=== PATIENT | female | born 1945 | race Caucasian/White ===

== ENCOUNTER → 2017-02-08 | Outpatient (CLI) | payer OTHER ==
[~2017-02-08] MED LIST: ASPEC325 PO; CHOL100010 PO; TRIATAB3 PO
[2017-02-08 14:19] LABS: ESTIMATED AVERAGE GLUCOSE 117 mg/dl; HA1C FLAG Normal (Normal)
[2017-02-08 14:46] LABS: CALCIUM 9.8 mg/dl (8.5-10.1)
[2017-02-08 14:49] LABS: ALT/SGPT 59 U/L (12-78); AST/SGOT 46 U/L (15-37); BLOOD UREA NITROGEN 10 mg/dl (7-18); BUN/CREATININE RATIO 15.4 (10-20); CARBON DIOXIDE 28 mmol/L (21-32); CHLORIDE 103 mmol/L (98-107); CHOLESTEROL 194 mg/dl (0-200); CREATININE 0.63 mg/dl (0.60-1.20); GLUCOSE 97 mg/dl (70-99); POTASSIUM 3.8 mmol/L (3.5-5.1); SODIUM 138 mmol/L (136-145); TRIGLYCERIDES 114 mg/dl (0-150); VERY LOW DENSITY LIPOPROT CALC 23 mg/dl
[2017-02-08 14:59] LABS: ALB/GLOB RATIO 1.2 (0.9-2); ALKALINE PHOSPHATASE 88 U/L (45-117); CHOLESTEROL/HDL RATIO 4.3; HDL CHOLESTEROL 45 mg/dl; LDL CHOLESTEROL CALCULATED 126 mg/dl
--- NOTE | 2017-02-15 08:03 | CODING QUERY MEDICAL NECESSITY ---
CQSUPPORTING DIAGNOSIS NEEDED A supporting diagnosis is required for the test/procedure performed on this patient in order for us to be reimbursed by the patient's insurance. Please provide a supporting diagnosis for the following test/procedure listed below next to the test name along with your signature. *If there is no additional diagnosis for this patient that would support the following test/procedure please document that below next to the test/procedure. Test(s)/Procedure(s) that require a supporting diagnosis: DOS 02/08/17 GLYCATED HEMOGLOBIN TEST Provider Signature: Date: Thank you Deedee Alejo Health Information Management Once completed, please kindly fax back to [phone] For questions please call [phone]
== END | disposition home or self-care (01) ==
LOC: C.LABBC 09:41
PROVIDERS: ATTEND Internal Medicine
DX: Z00.00 Encounter for general adult medical examination without abnormal findings (principal); E55.9 Vitamin D deficiency, unspecified; R73.03 Prediabetes

== ENCOUNTER → 2017-04-30 | Outpatient (CLI) | payer OTHER ==
--- NOTE | 2017-04-30 15:41 | DIAGNOSTIC IMAGING REPORT ---
ABD/PELVIS ORAL CONT ONLY CLINICAL HISTORY: Epigastric abdominal pain. Previous hernia repair. COMPARISON STUDY: CT of the abdomen and pelvis September 29, 2011. FINDINGS: Evaluation of the abdomen and pelvis is suboptimal on this unenhanced exam. There is suspected fatty infiltration of the liver. There is lobulated contour of the liver surface with enlargement of the lateral segment. This may reflect cirrhosis. There is no biliary ductal dilatation status post cholecystectomy. Unenhanced images of the spleen, adrenal glands and pancreas are unremarkable. There is no hydronephrosis. There are left-sided parapelvic cysts. There is been an interval ventral hernia repair. There is no evidence for a bowel obstruction. The appendix is normal. The uterus is surgically absent. There are no suspicious osseous lesions. There is no ascites or lymphadenopathy. IMPRESSION: 1. No acute process within the abdomen or pelvis on unenhanced exam. 2. Suspected fatty infiltration of the liver with lobulated contour of the liver surface which raises the possibility of early cirrhosis. Electronically signed by: Gael Rogel M.D. 04/30/2017 3:40 PM Dictated Date/Time: 04/30/2017 3:31 PM
== END | disposition home or self-care (01) ==
LOC: C.CTS 13:15
PROVIDERS: ATTEND Physician Assistant
DX: R10.13 Epigastric pain (principal)

== ENCOUNTER → 2017-05-05 | Outpatient (CLI) | payer OTHER ==
--- NOTE | 2017-05-05 10:29 | DIAGNOSTIC IMAGING REPORT ---
ULTRASOUND RIGHT UPPER QUADRANT ABDOMEN CLINICAL HISTORY: Hepatomegaly.. COMPARISON STUDY: Abdominal CT dated 04/30/2017. TECHNIQUE: Real-time, grayscale, and color flow sonography of the right upper quadrant of the abdomen was performed. Images are reviewed in the transverse and longitudinal planes. FINDINGS: Liver: The liver is normal in size measuring 13.3 cm in length. The liver demonstrates heterogeneously increased echotexture consistent with hepatic steatosis. Mild nodularity of the surface contour is suggested. There is no intrahepatic biliary ductal dilatation. The main portal vein is patent. Gallbladder: The gallbladder is surgically absent. The common bile duct measures up to 0.8 cm in diameter. Pancreas: Visualized portions of the pancreatic head and body are normal in appearance. The majority of the pancreas was not well visualized. The splenic vein is patent. Right kidney: Survey images of the right kidney demonstrate cortical atrophy. There is no hydronephrosis. Ascites: None. IMPRESSION: 1. The liver is normal in size and there is evidence of hepatic steatosis. 2. Mild nodularity of the hepatic surface contour suggests early change of cirrhosis. 3. The gallbladder is surgically absent. Electronically signed by: Rodolfo Renee M.D. 05/05/2017 10:28 AM Dictated Date/Time: 05/05/2017 10:26 AM
== END | disposition home or self-care (01) ==
LOC: C.ULTRBC 09:40
PROVIDERS: ATTEND Physician Assistant
DX: R16.0 Hepatomegaly, not elsewhere classified (principal)

== ENCOUNTER → 2017-11-16 | Outpatient (CLI) | payer OTHER ==
--- NOTE | 2017-11-16 09:46 | DIAGNOSTIC IMAGING REPORT ---
ABDOMINAL ULTRASOUND, RIGHT UPPER QUADRANT HISTORY: Enlarged liver. COMPARISON: CT of the abdomen and pelvis April 30, 2017 and right upper quadrant ultrasound May 05, 2017. FINDINGS: There is no biliary ductal dilatation status post cholecystectomy. This exam is compromised by suboptimal penetration. Increased hepatic echogenicity suggests fatty infiltration. No hepatic lesions are identified although sensitivity is diminished on this unenhanced exam. The size of the liver is within normal limits. The pancreas is obscured by overlying bowel gas. There is no right hydronephrosis. A 1.3 cm right renal cyst is noted. IMPRESSION: 1. Fatty infiltration of the liver. Normal size liver. 2. No biliary ductal dilatation status post cholecystectomy. 3. Study compromised by suboptimal penetration. Largely obscured pancreas. Electronically signed by: Gael Rogel M.D. 11/16/2017 9:45 AM Dictated Date/Time: 11/16/2017 9:43 AM
== END | disposition home or self-care (01) ==
LOC: C.ULTR 08:52
PROVIDERS: ATTEND Internal Medicine
DX: K76.0 Fatty (change of) liver, not elsewhere classified (principal)

== ENCOUNTER 2019-02-24 01:00 | Inpatient (IN) ==
[2019-02-24] MEDS ORDERED: SODIUM CHLORIDE 0.9% 1000ML 1,000 ML IV SCH (01:30)
[2019-02-24 01:35] LABS: Basophils # (auto) 0.01 K/uL (0-0.2); Basophils % (auto) 0.1 %; Eosinophils # (auto) 0.02 K/uL (0-0.5); Eosinophils % (auto) 0.2 %; Hematocrit (blood only) 42.3 % (37-47); Hemoglobin 14.3 g/dL (12.0-16.0); Immature Granulocytes # (auto) 0.01 K/uL (0.00-0.02); Immature Granulocytes % (auto) 0.1 %; Lymphocytes # (auto) 0.53 K/uL (1.2-3.4); Lymphocytes % (auto) 6.3 %; Mean Corpuscular Hgb Conc 33.8 g/dL (32-36); Mean Corpuscular Volume 83.6 fL (80-100); Mean Platelet Volume 10.3 fL (7.4-10.4); Monocytes # (auto) 0.29 K/uL (0.11-0.59); Monocytes % (auto) 3.5 %; Neutrophils # (auto) 7.54 K/uL (1.4-6.5); Neutrophils % (auto) 89.8 %; Platelet Count 176 K/uL (130-400); RDW Coefficient of Variation 13.2 % (11.5-14.5); RDW Standard Deviation 39.6 fL (36.4-46.3); Red Blood Count 5.06 M/uL (4.2-5.4)
[2019-02-24 01:50] LABS: Albumin Level 4.1 gm/dl (3.4-5.0); BUN Creatinine Ratio 17.5 (10-20); Calcium 9.8 mg/dl (8.5-10.1); Creatinine Clr Calc Pharmacy 76.4 ml/min; Est GFR (African American) 98.6; Est GFR (Non-African American) 85.1; Magnesium 2.1 mg/dl (1.8-2.4); Potassium 3.4 mmol/L (3.5-5.1)
[2019-02-24 02:05] LABS: Albumin Globulin Ratio 1.1 (0.9-2); Bilirubin,Total 0.7 mg/dl (0.2-1); Globulin 3.7 gm/dl (2.5-4.0); Total Protein 7.8 gm/dl (6.4-8.2); Troponin I 0.054 ng/ml (0-0.045)
[2019-02-24 02:11] LABS: Appearance Urine Turbid (Clear); Bacteria Urine Automated Negative (Negative); Bilirubin Urine Negative (Negative); Color Urine Yellow; Epithelial Cell Urine Auto >30 /lpf (0-5); Glucose Urine UA Negative (Negative); Leukocyte Esterase Urine 2+ (Negative); Nitrite Urine Negative (Negative); Specific Gravity Urine 1.025 (1.000-1.030); Urobilinogen Urine Negative (Negative); pH Urine 8.5 (4.5-7.5)
[2019-02-24] MEDS ORDERED: ONDANSETRON INJ 2 MG/ML 2 ML VIAL IV STA (02:13)
[2019-02-24 02:23] LABS: Protein Urine 1+ (Negative)
[2019-02-24 02:26] LABS: Ketones Urine 4+ (Negative)
[2019-02-24 02:28] LABS: Amorphous Sediment Urine Present (None Prsent)
[2019-02-24] MEDS ORDERED: IOVERSOL 100ml IV PRN (02:44)
[2019-02-24] MEDS ORDERED: fentaNYL citrate 100 MCG/2 ML VIAL IV PRN (03:00)
--- NOTE | 2019-02-24 03:11 | Emergency Department Note ---
Entered by Lalit Rebolledo acting as a scribe for History of Present Illness General Chief complaint: Nausea Stated complaint: NAUSEA/VOMITING Time Seen by Provider: 02/24/19 01:12 Source: patient and family () History of Present Illness Onset (ago): day(s) (yesterday at 2100) Location: abdomen Pain Consistency: + other (multiple episodes) Maximum Pain Intensity: 4 Quality: + other (vomiting and diarrhea) Associated symptoms: + other (Positive for right-sided abdominal pain, a subjective fever, chills, and feeling more tired than usual. Negative for bloody stool, hematemesis, and changes in her bowel movements.) The patient is a 73 year old female who presents to the emergency department with complaints of multiple episodes of vomiting and diarrhea beginning yesterday at 2100. The patient states that she has had three episodes of vomiting and three episodes of diarrhea today. She notes that she gets a sharp pain in her right side prior to having an episode of vomiting and diarrhea. She also complains of a subjective fever and chills. She reports that she felt fine earlier today. Per , the patient is more tired than she usually is. He states that the patient has been more tired since her knee surgery in September,. The patient states that she has been having signs of depression for the last month. She denies any bloody stool, hematemesis, and changes to her bowel movements. No other recent history of abnormal bowel movements or urination. No recent change in diet or medications. She notes that she has had a cholec ystectomy and had a complication which required an additional abdominal surgery. Patient did have a surgery to her right knee in September and has had some difficulty recovering since. No sick contact at home. Home Medications Home Medications Medication Instructions Recorded Confirmed Type No Known Home Medications 02/24/19 02/24/19 History Allergies Allergy/AdvReac Type Severity Reaction Status Date / Time fluoxetine Allergy Intermediate RASH Verified 02/24/19 03:24 doxycycline AdvReac Severe UPSET Verified 02/24/19 03:24 STOMACH Past Med/Surg History Medical History Vitamin D deficiency (Acute) Speech dysfluency (Acute) Pre-diabetes (Acute) Peripheral vertigo (Acute) Osteoarthritis of knee (Acute) Obstructive sleep apnea (Acute) Hepatic steatosis (Acute) Hepatic cirrhosis (Acute) Generalized anxiety disorder (Acute) Cognitive changes (Acute) Attention or concentration deficit (Acute) Bipolar disorder Cardiac murmur CHILDHOOD; NO MURMUR NOTED ON PAT EXAM GERD (gastroesophageal reflux disease) CONTROLLED Obesity Osteoarthritis Sleep apnea BIPAP Vertigo Surgical History History of cataract surgery BILATERAL History of cholecystectomy LAPAROSCOPIC History of dilatation and curettage History of herniorrhaphy INCISIONAL HERNIA REPAIR History of hysterectomy LAP HYSTERECTOMY WITH BSO Social History Preferred Language: Hungarian Communication Ability: Effective Beliefs That Will Affect Care: None Current Living Situation: Spouse Feels Safe at Home: Yes Smoking Status: Never smoker Second Hand Exposure: No Hx Alcohol Use: No Hx Substance Use: No Review of Systems See HPI for pertinent positives & negatives. and A total of 10 systems reviewed and were otherwise negative Physical Exam Vital Signs Vital Signs - 24 hr 02/24/19 00:52 02/24/19 01:05 02/24/19 01:07 Temperature 37.1 C Temperature Source Oral Sepsis Recent Fever Within 48 Hours No Sepsis Action Taken by Nursing No Action Required Pulse Rate 68 72 69 Pulse Rate from SpO2 Sensor 73 70 Respiratory Rate 20 18 24 Respiratory Effort / Characteristics Normal for Patient Blood Pressure 157/76 H 157/76 H Blood Pressure Mean 103 103 Blood Pressure Position Lying Pulse Oximetry 96 95 Oxygen Delivery Method Room Air 02/24/19 01:30 02/24/19 02:18 02/24/19 02:20 Temperature Temperature Source Sepsis Recent Fever Within 48 Hours Sepsis Action Taken by Nursing Pulse Rate 72 80 78 Pulse Rate from SpO2 Sensor 72 79 Respiratory Rate 24 23 31 H Respiratory Effort / Characteristics Blood Pressure 157/79 H Blood Pressure Mean 105 Blood Pressure Position Pulse Oximetry 94 99 Oxygen Delivery Method 02/24/19 02:30 02/24/19 02:47 02/24/19 03:00 Temperature Temperature Source Sepsis Recent Fever Within 48 Hours Sepsis Action Taken by Nursing Pulse Rate 77 74 75 Pulse Rate from SpO2 Sensor 77 75 75 Respiratory Rate 20 22 33 H Respiratory Effort / Characteristics Blood Pressure 138/113 H Blood Pressure Mean 121 Blood Pressure Position Pulse Oximetry 90 96 95 Oxygen Delivery Method 02/24/19 03:01 02/24/19 03:30 02/24/19 03:31 Temperature Temperature Source Sepsis Recent Fever Within 48 Hours Sepsis Action Taken by Nursing Pulse Rate 79 64 69 Pulse Rate from SpO2 Sensor 79 64 69 Respiratory Rate 26 H 20 26 H Respiratory Effort / Characteristics Blood Pressure 188/77 H 152/94 H Blood Pressure Mean 114 113 Blood Pressure Position Pulse Oximetry 95 97 94 Oxygen Delivery Method 02/24/19 04:00 02/24/19 04:01 Temperature Temperature Source Sepsis Recent Fever Within 48 Hours Sepsis Action Taken by Nursing Pulse Rate 64 67 Pulse Rate from SpO2 Sensor 65 67 Respiratory Rate 26 H 29 H Respiratory Effort / Characteristics Blood Pressure 144/79 H Blood Pressure Mean 100 Blood Pressure Position Pulse Oximetry 97 96 Oxygen Delivery Method GENERAL: alert, well appearing, well nourished, no distress, non-toxic EYE EXAM: normal conjunctiva, PERRL and EOM's grossly intact OROPHARYNX: no exudate, no erythema, lips, buccal mucosa, and tongue normal and mucous membranes are mildly dry. NECK: supple, no nuchal rigidity, no adenopathy, non-tender LUNGS: Clear to auscultation. Normal chest wall mechanics HEART: no murmurs, S1 normal and S2 normal ABDOMEN: abdomen soft, normo-active bowel sounds, no masses, no rebound or guarding, mild RUQ tenderness. Dull to percussion. BACK: Back is symmetrical on inspection and there is no deformity, no midline tenderness, no CVA tenderness. SKIN: no rashes and no bruising UPPER EXTREMITIES: upper extremities are grossly normal. FROM, nml pulses b/l. LOWER EXTREMITIES: No pitting edema. FROM, nml pulses b/l. NEURO EXAM: Normal sensorium, cranial nerves II-XII grossly intact, normal speech, no gross weakness of arms, no gross weakness of legs. No facial droop, no ataxia. Course 0116: The patient was evaluated in room B4. A complete history and physical exam was performed. 0301: I reevaluated and updated the patient. We discussed all results and plan. She admits to recent right-sided chest pain intermittently. She notes that her chest pain is non-radiating. She denies any other accompanying symptoms. She notes that her twin brother had bypass surgery 8 years ago. She states she has never had any cardiology evaluation such as a stress test. 0420: Upon reevaluation, the patient is stable. I discussed the findings and the treatment plan with the patient. She expresses agreement and understanding. I spoke with Dr. Juarez of the [facility]. The patient will be evaluated for further management. Consultations Consultation #1: I reviewed the patient's case with Dr. Juarez - Hospitalist, [facility]. He will evaluate the patient for further management. Time: 04:20 Administered Medications Fentanyl Citrate (Fentanyl Citrate) 100 mcg IV Q15M PRN PRN Reason: Pain Stop: 03/10/19 02:59 Last Admin: 02/24/19 03:07 Dose: 100 mcg Documented by: [id number] Sodium Chloride (Nss 1000ml) 1,000 mls @ 250 mls/hr IV .Q4H BHUMIKA Stop: 03/26/19 01:29 Last Admin: 02/24/19 01:38 Dose: 250 mls/hr Documented by: [id number] Ioversol (Optiray 320 100ml) 94 ml IV ONCE PRN PRN Reason: Interaction Checking Stop: 02/28/19 02:43 Last Admin: 02/24/19 02:45 Dose: 94 ml Documented by: [id number] Discontinued Medications Ceftriaxone Sodium (Rocephin) 1,000 mg in 50 mls @ 100 mls/hr IV NOW STA Stop: 02/24/19 03:41 Last Infusion: 02/24/19 04:00 Dose: 0 mls/hr Documented by: [id number] Admin: 02/24/19 03:28 Dose: 100 mls/hr Documented by: [id number] Ondansetron HCl (Zofran) 4 mg IV NOW STA Stop: 02/24/19 02:14 Last Admin: 02/24/19 02:20 Dose: 4 mg Documented by: [id number] Medical Decision Making Differential Diagnosis Differential diagnosis: Etiologies such as gastroenteritis, food borne illness, infections, appendicitis, diverticulitis, inflammatory bowel disease, obstruction, GI bleed, biliary pathology, cardiac process, intracranial process, as well as others were entertained. Medical Records Attestation: I reviewed the patient's medical records. Home Medications Current Medication List: was personally reviewed by me Laboratory Data Attestation: I reviewed the patient's lab results. Result diagrams: 02/24/19 01:19 02/24/19 01:19 Lab Results 02/24/19 02/24/19 02/24/19 Range/Units 01:19 01:19 01:25 WBC 8.40 (4.8-10.8) K/uL RBC 5.06 (4.2-5.4) M/uL Hgb 14.3 (12.0-16.0) g/dL Hct 42.3 (37-47) % MCV 83.6 (80-100) fL MCH 28.3 (25-34) pg MCHC 33.8 (32-36) g/dL RDW Std Deviation 39.6 (36.4-46.3) fL RDW Coeff of Niko 13.2 (11.5-14.5) % Plt Count 176 (130-400) K/uL MPV 10.3 (7.4-10.4) fL Immature Gran % (Auto) 0.1 % Neut % (Auto) 89.8 % Lymph % (Auto) 6.3 % [place] % (Auto) 3.5 % Eos % (Auto) 0.2 % Baso % (Auto) 0.1 % Immature Gran # (Auto) 0.01 (0.00-0.02) K/uL Neut # (Auto) 7.54 H (1.4-6.5) K/uL Lymph # (Auto) 0.53 L (1.2-3.4) K/uL [place] # (Auto) 0.29 (0.11-0.59) K/uL Eos # (Auto) 0.02 (0-0.5) K/uL Baso # (Auto) 0.01 (0-0.2) K/uL Sodium 137 (136-145) mmol/L Potassium 3.4 L (3.5-5.1) mmol/L Chloride 101 (98-107) mmol/L Carbon Dioxide 27 (21-32) mmol/L Anion Gap 9.0 (3-11) BUN 12 (7-18) mg/dl Creatinine 0.71 (0.6-1.2) mg/dl Est Cr Clr Drug Dosing 76.4 ml/min Est GFR ( Amer) 98.6 Est GFR (Non-Af Amer) 85.1 BUN/Creatinine Ratio 17.5 (10-20) Glucose 132 H (70-99) mg/dl POC Lactic Acid Christoph 2.03 H (0.90-1.70) mmol/L Calcium 9.8 (8.5-10.1) mg/dl Magnesium 2.1 (1.8-2.4) mg/dl Total Bilirubin 0.7 (0.2-1) mg/dl AST 19 (15-37) U/L ALT 29 (12-78) U/L Alkaline Phosphatase 105 (45-117) U/L Troponin I 0.054 H* (0-0.045) ng/ml Total Protein 7.8 (6.4-8.2) gm/dl Albumin 4.1 (3.4-5.0) gm/dl Globulin 3.7 (2.5-4.0) gm/dl Albumin/Globulin Ratio 1.1 (0.9-2) Lipase 98 (73-393) U/L TSH 2.910 (0.300-4.500) uIu/ml Urine Color Urine Appearance (Clear) Urine pH (4.5-7.5) Ur Specific [place] (1.000-1.030) Urine Protein (Negative) Urine Glucose (UA) (Negative) Urine Ketones (Negative) Urine Blood (Negative) Urine Nitrite (Negative) Urine Bilirubin (Negative) Urine Urobilinogen (Negative) Ur Leukocyte Esterase (Negative) Urine WBC (Auto) (0-5) /hpf Urine RBC (Auto) (0-4) /hpf U Hyaline Cast (Auto) (0-5) /lpf U Epithel Cells (Auto) (0-5) /lpf Urine Bacteria (Auto) (Negative) Ur Renal Epithelial Cell Amorphous Sediment (None Prsent) 02/24/19 Range/Units 01:58 WBC (4.8-10.8) K/uL RBC (4.2-5.4) M/uL Hgb (12.0-16.0) g/dL Hct (37-47) % MCV (80-100) fL MCH (25-34) pg MCHC (32-36) g/dL RDW Std Deviation (36.4-46.3) fL RDW Coeff of Niko (11.5-14.5) % Plt Count (130-400) K/uL MPV (7.4-10.4) fL Immature Gran % (Auto) % Neut % (Auto) % Lymph % (Auto) % [place] % (Auto) % Eos % (Auto) % Baso % (Auto) % Immature Gran # (Auto) (0.00-0.02) K/uL Neut # (Auto) (1.4-6.5) K/uL Lymph # (Auto) (1.2-3.4) K/uL [place] # (Auto) (0.11-0.59) K/uL Eos # (Auto) (0-0.5) K/uL Baso # (Auto) (0-0.2) K/uL Sodium (136-145) mmol/L Potassium (3.5-5.1) mmol/L Chloride (98-107) mmol/L Carbon Dioxide (21-32) mmol/L Anion Gap (3-11) BUN (7-18) mg/dl Creatinine (0.6-1.2) mg/dl Est Cr Clr Drug Dosing ml/min Est GFR ( Amer) Est GFR (Non-Af Amer) BUN/Creatinine Ratio (10-20) Glucose (70-99) mg/dl POC Lactic Acid Christoph (0.90-1.70) mmol/L Calcium (8.5-10.1) mg/dl Magnesium (1.8-2.4) mg/dl Total Bilirubin (0.2-1) mg/dl AST (15-37) U/L ALT (12-78) U/L Alkaline Phosphatase (45-117) U/L Troponin I (0-0.045) ng/ml Total Protein (6.4-8.2) gm/dl Albumin (3.4-5.0) gm/dl Globulin (2.5-4.0) gm/dl Albumin/Globulin Ratio (0.9-2) Lipase (73-393) U/L TSH (0.300-4.500) uIu/ml Urine Color Yellow Urine Appearance Turbid A (Clear) Urine pH 8.5 H (4.5-7.5) Ur Specific [place] 1.025 (1.000-1.030) Urine Protein 1+ H (Negative) Urine Glucose (UA) Negative (Negative) Urine Ketones 4+ H (Negative) Urine Blood Negative (Negative) Urine Nitrite Negative (Negative) Urine Bilirubin Negative (Negative) Urine Urobilinogen Negative (Negative) Ur Leukocyte Esterase 2+ H (Negative) Urine WBC (Auto) 10-30 H (0-5) /hpf Urine RBC (Auto) 5-10 H (0-4) /hpf U Hyaline Cast (Auto) 10-30 H (0-5) /lpf U Epithel Cells (Auto) >30 H (0-5) /lpf Urine Bacteria (Auto) Negative (Negative) Ur Renal Epithelial Cell Not Reportable Amorphous Sediment Present A (None Prsent) Imaging Data Radiologist's Impression: Radiology results as stated below per my review and the radiologist's interpretation: CT ABDOMEN & PELVIS With Contrast: Comparison is made to CT abdomen/pelvis on 04/30/2017. Small hiatal hernia. Hepatic steatosis. Prior cholecystectomy. Borderline size of the spleen. Small hypodensities in the kidneys are too small to definitively characterize. Peripelvic cysts bilaterally. No definite hydronephrosis or obstructing stone. Surgical clips in the pelvis. Prior hysterectomy. Small amount of fluid in the posterior pelvis. Decompressed sigmoid:, descending colon, and transverse colon. Normal appendix. Mildly dilated fluid and gas-filled small bowel loops with mild narrowing of small bowel and gradual transition to decompressed small bowel loops in the right mid abdomen. Fecal-like material noted within the small bowel just proximal to the mild narrowing. Findings may represent enteritis versus ileus versus partial small bowel obstruction. Atherosclerotic changes of the vasculature. No aortic aneurysm or dissection. Atrophy of the pancreas. No definite acute inflammation. Underdistended bladder. Radiologist: Natty Metcalf MD. ECG Data Attestation: I personally reviewed and interpreted this ECG as follows: Indication: vomiting Rate (beats per minute): 71 Rhythm: sinus rhythm Findings: + Q waves (in lead 3) and + T-wave inversion (in lead 3); no PAC and no PVC Additional Comments: Normal axis, normal intervals, no other ischemic changes. EKG #2: Sinus rhythm, 71, normal axis, normal intervals, no ectopy, inverted T wave in lead 3, no other ischemic changes. Blood Pressure Blood Pressure Findings: Elevated blood pressure Blood Pressure Disposition: further management by hospitalist [facility] Narrative She here presenting with story of sudden onset of right upper quadrant pain, nausea, vomiting, and. Patient was afebrile here. Labs drawn, IV started patient given IV nausea medication and IV fluids. Patient had a prior cholecystectomy but ended up with additional GI surgery so patient also sent for additional CT imaging to rule out other GI pathology. Patient's nausea and vomiting was improved, however she did have recurrent right upper quadrant pain and was given IV pain medication. CT abdomen and pelvis was read by stat radiology without confirming diagnosis however suggested several possibilities. Given history and exam findings I am less suspicious of an occult or evolving SBO. I think an ileus or enteritis are more likely. I am concerned about the elevated troponin given patient's recent reported fatigue and upon additional questioning reported right-sided chest pain in recent days. I do feel patient warrants additional evaluation by cardiology. Patient and at bedside are aware of all results were in agreement with plan for additional inpatient evaluation and management. I do not suspect at this time perforation, GI bleed, bacteremia/sepsis, dissection, mesenteric ischemia, or ascending cholangitis. Impression & Plan Abdominal pain, Vomiting and diarrhea, Elevated troponin, Fatigue Discharge Plan Visit Data Chief Complaint: Nausea Stated Complaint: NAUSEA/VOMITING Other Complaint: Vomiting ED Provider: Mora Andrews Discharge Problem: Abdominal pain, Vomiting and diarrhea, Elevated troponin, Fatigue Patient Disposition: Being Evaluated by Hospitalist Forms Stand Alone Forms: My [facility] Prescriptions Prescriptions: No Action No Known Home Medications RF: 0 Referrals Referrals: Fly Encinas MD [Primary Care Provider] - Discharge Problem: Abdominal pain Qualifiers: Abdominal location: right upper quadrant Qualified Code(s): R10.11 - Right upper quadrant pain Fatigue Qualifiers: Fatigue type: unspecified Qualified Code(s): R53.83 - Other fatigue The scribe's documentation has been prepared under my direction and personally reviewed by me in its entirety. I confirm that the note above accurately reflects all work, treatment, procedures, and medical decision making performed by me.
[2019-02-24] MEDS ORDERED: cefTRIAXone SODIUM 1,000 MG/50 ML BAG IV STA (03:12)
--- NOTE | 2019-02-24 03:56 | History & Physical Report ---
Date of Service February 24, 2019 Assessment & Plan (1) Vomiting and diarrhea: 73 y/o F Hx bipolar disorder, obese, LARA. Presents with abdominal pain, nausea, vomiting, diarrhea x 1 day after eating a chicken salad at an [employer] in [place]. Reports fevers over the past day. She also states that for the past 3 days she has had sharp pain in her RUQ and and R chest. She does not have a gallbladder. Initial labs are notable for an elevated troponin and a mild lactic elevation. A CT of the abdomen was consistent with enteritis. She denies SOB or L sided CP. 1) Nausea, vomiting, diarrhea - this is likely an enteritis and we will just provide supportive care for now. She has a mild lactic elevation which may be more related to dehydration, however we will repeat this lab as it can rise if there is an ischemic component or a progressive infection. 2) Elevated troponin - she has had some R CP, however, her presentation is not consistent with cardiac etiology. We will obtain an echo to assess for concomitant wall motion abnormalities. Trop will be trended and we will monitor on telemetry. 3) Bipolar disorder - untreated - does not report any recent exacerbations 4) LARA - will provide BiPAP Full code - Heparin prophylaxis Total time for this admit including review of labs, meds, imaging, records - discussion with pt and ER attending - 36 min Present on Admission?: Yes History of Present Illness Chief Complaint: Abdominal pain Primary Care Provider: Fly Encinas MD 73 y/o F Hx bipolar disorder, obese, GERD, LARA. Presents with abdominal pain, nausea, vomiting, diarrhea x 1 day after eating a chicken salad at an [employer] in [place]. Reports fevers over the past day. She also states that for the past 3 days she has had sharp pain in her RUQ and and R chest. She does not have a gallbladder. Initial labs are notable for an elevated troponin and a mild lactic elevation. A CT of the abdomen was consistent with enteritis. She denies SOB or L sided CP. PMH: 1) Bipolar disorder - this is not treated as she states that she "never had any luck with antidepressants" 2) Obese - BMI 38 3) LAAR - BiPAP 4) GERD Surgical: 1) L TKR 2) Cholecystectomy 3) Hernia repair 4) Hysterectomy Social: No history of smoking or drinking Family: Father due to complications of DM and lower extremity infections Mother due to an ND Allergies Allergy/AdvReac Type Severity Reaction Status Date / Time fluoxetine Allergy Intermediate RASH Verified 02/24/19 03:24 doxycycline AdvReac Severe UPSET Verified 02/24/19 03:24 STOMACH Home Medications Home Medications Medication Instructions Recorded Confirmed Type No Known Home Medications 02/24/19 02/24/19 History Past Med/Surg History Medical History Vitamin D deficiency (Acute) Speech dysfluency (Acute) Pre-diabetes (Acute) Peripheral vertigo (Acute) Osteoarthritis of knee (Acute) Obstructive sleep apnea (Acute) Hepatic steatosis (Acute) Hepatic cirrhosis (Acute) Generalized anxiety disorder (Acute) Cognitive changes (Acute) Attention or concentration deficit (Acute) Bipolar disorder Cardiac murmur CHILDHOOD; NO MURMUR NOTED ON PAT EXAM GERD (gastroesophageal reflux disease) CONTROLLED Obesity Osteoarthritis Sleep apnea BIPAP Vertigo Surgical History History of cataract surgery BILATERAL History of cholecystectomy LAPAROSCOPIC History of dilatation and curettage History of herniorrhaphy INCISIONAL HERNIA REPAIR History of hysterectomy LAP HYSTERECTOMY WITH BSO Social History Preferred Language: Japanese Communication Ability: Effective Beliefs That Will Affect Care: None Current Living Situation: Spouse Feels Safe at Home: Yes Smoking Status: Never smoker Second Hand Exposure: No Hx Alcohol Use: No Hx Substance Use: No Review of Systems Review of Systems: Gen: Reports fevers over the past day ENT: Denies congestion, throat pain, hearing loss Eyes: Denies acute visual changes CV: R sided sharp pains x 3 days Pulmonary: Denies SOB, cough, wheezing GI: Nause/vomiting/diarrhea as above Neuro: Denies acute or unilateral weakness, acute gait impairment, headache or acute visual changes Musculoskeletal: Denies joint pain, inflammation Endocrine: Denies polydipsia, polyuria Skin: Denies acute rashes or ulcers Physical Exam Physical Exam: General: AAO x 3, no distress ENT: No erythema or exudates, no thrush Eyes: LIZ, EOMI Head and neck: Normocephalic, atraumatic, No JVD, neck is supple. Chest/heart: Nontender, S1,2, RRR, no murmurs, no gallops Lungs: CTAB, no wheezing or crackles Abdomen: Nontender, nondistended, BS+ Neuro: AAO x 3, speech is clear, no unilateral weakness or loss of sensation, coordination intact Musculoskeletal: No joint inflammation, muscle tenderness, FROM Skin: No acute rashes or ulcers Extremities: No clubbing, cyanosis, edema Results & Data Vital Signs (Past 12 Hours) Vital Signs Temp Pulse Resp BP Pulse Ox 02/24/19 02:47 74 22 138/113 H 96 02/24/19 02:30 77 20 90 02/24/19 02:20 78 31 H 157/79 H 99 02/24/19 02:18 80 23 02/24/19 01:30 72 24 94 02/24/19 01:07 69 24 02/24/19 01:05 72 18 157/76 H 95 02/24/19 00:52 98.8 F 68 20 157/76 H 96
[2019-02-24] MEDS ORDERED: POLYETHYLENE (MIRALAX) 17 GM PACK PO PRN (05:14)
[2019-02-24] MEDS ORDERED: MoRPHine SULFATE 4 MG/ML 1 ML CARP\\VIAL IV PRN (05:14)
[2019-02-24] MEDS ORDERED: MAGNESIUM HYDROXIDE SUSP 30 ML UDC PO PRN (05:14)
[2019-02-24] MEDS ORDERED: ALUMINUM/MAGNESIUM SUSP 30 ML UDC PO PRN (05:14)
[2019-02-24] MEDS ORDERED: ONDANSETRON INJ 2 MG/ML 2 ML VIAL IV PRN (05:14)
[2019-02-24] MEDS ORDERED: D5W AND LACTATED RINGERS 1,000 ML IV SCH (05:14)
[2019-02-24] MEDS ORDERED: ACETAMINOPHEN 325 MG TAB PO PRN (05:14)
[2019-02-24] MEDS: POTASSIUM CHLORIDE / WTR 10 MEQ/100 ML PLCT IV SCH ×2 (06:36→08:19)
--- NOTE | 2019-02-24 06:44 | CT Scan Report ---
CT abd pelvis IV con only CLINICAL HISTORY: Right upper quadrant pain, vomiting, diarrhea. COMPARISON STUDY: April 2017 TECHNIQUE: The patient was scanned in a dynamic helical fashion during intravenous administration of 94 cc of Optiray 320. A dose lowering technique was utilized adhering to the principles of ALARA. CT DOSE: 1059.49 mGy.cm FINDINGS: Lower chest: The heart is normal in size and configuration, without pericardial effusion. The lung ba ses and pleural spaces are clear. There is a small hiatal hernia. Liver: The contrast-enhanced liver is normal in size, contour, and attenuation. There is no intrahepa tic biliary ductal dilatation. The hepatic veins and portal veins are patent. Gallbladder: Surgically absent Spleen: The spleen is mildly enlarged measuring 13.2 cm. Pancreas: Unremarkable. Adrenal glands: Unremarkable. Kidneys: No solid renal masses are visualized. There is a 1 cm cyst within each kidney. Bowel: There are prominent fluid-filled small bowel loops with multiple air-fluid levels. There is fo rmed fecal material within several small bowel loops. The distal small bowel is of normal caliber. Th e findings are consistent with an early or partial small bowel obstruction. The appendix appears norm al. There is no acute diverticulitis. Peritoneum: There is no free air. There is trace free pelvic fluid. Vasculature: The abdominal aorta is normal in course and caliber. Adenopathy: None. Pelvic viscera: The uterus appears surgically absent. Skeletal structures: No destructive osseous lesions are seen. IMPRESSION: 1. Dilated fluid-filled small bowel loops with normal caliber distal small bowel. The findings are co nsistent with an early or partial small bowel obstruction 2. Normal appendix. No evidence of acute diverticulitis 3. Mild splenomegaly Electronically signed by: Yayo Sanchez M.D. 02/24/2019 6:43 AM
[2019-02-24 07:24] LABS: INR 1.1 (0.9-1.1); Prothrombin Time 10.8 Seconds (9.0-12.0)
[2019-02-24] MEDS ORDERED: PNEUMOCOCCAL POLYSACCHARIDES 25 MCG/0.5 ML VIAL/SYR IM ONE (09:00)
[2019-02-24] MEDS ORDERED: PNEUMOCOCCAL ADMINISTRATION CHARGE ONE (09:00)
[2019-02-24] MEDS: HEPARIN SOD 5,000 UNIT/0.5 ML VIAL SQ SCH ×2 (13:41→22:11)
--- NOTE | 2019-02-24 17:01 | Family Medicine Progress Note ---
Date of Service February 24, 2019 Assessment & Plan (1) Abdominal pain: Mary is a 73-year-old female with a past medical history of bipolar, obesity, sleep apnea who presented with 1 day of abdominal pain, nausea, vomiting, and diarrhea after eating a chicken salad [employer] in [place]. She was febrile with these episodes. She was found to have elevated troponins on admit, she was admitted for further work-up and observation. Gastroenteritis She presented with nausea, vomiting, and multiple episodes of liquidy diarrhea onset following a chicken salad meal. Her diarrhea is slowly improving on its own. She has not had recent antibiotic treatment, and her diarrhea has not been bloody or with mucus. It has had some formed but mostly liquid quality. Lactate was elevated to 2.4 on admit, downtrending CT abdomen showed early/partial small bowel obstruction possibly consistent with enteritis. She has had abdominal surgeries before, including a hysterectomy and cholecystectomy, so is at risk for adhesion obstruction. We will continue to follow clinically at this time. Advance diet slowly. Clears tonight, full liquids tomorrow morning, and continue to advance as tolerated. IV fluid maintenance with D5 LR 125 cc/h while p.o. intake is poor Elevated troponin, likely demand mismatch On admission she had some right-sided chest pain without EKG changes. Troponins were mildly elevated 2.054, peaked at 0.094, and have since down trended. TTE was obtained, shows mild LVH with normal LV function and ejection fraction of 65-70%. No wall motion abnormality. Low suspicion for cardiac etiology, suspect mismatch in setting of acute illness. Will not trend troponins further, no repeat EKG scheduled at this time. Additional follow-up if clinically indicated. Bipolar disorder Has been treated with multiple medications including lithium and Depakote in the past. No recent treatment. Has had manic episodes in the past. Stop lithium due to liver concerns. She feels a little bit "slowed down" lately, will think about whether she would like to consider pharmacotherapy or reestablishing with a therapist. May reach out to us for pharmacotherapy during admission, or defer to her PCP. History of obstructive sleep apnea Continue BiPAP nightly DVT prophylaxis: Heparin 5000 every 8 hours Full code Disposition: Observe overnight, advance diet, plan for discharge to home if doing clinically well (2) Vomiting and diarrhea: (3) Elevated troponin: Supervising Physician Co-Signing Physician Notes Patient seen and examined with Dr. Garcia. Agree with history, exam findings, assessment and plan of care as documented. Ms White is a 73 year old female with hx of bipolar disorder, LARA, obesity admitted with n/v/diarrhea. No more episodes of diarrhea or vomiting. Feeling better. Some generalized abdominal tenderness. 1. Nausea/vomiting/diarrhea. Likely gastroenteritis--resolving. Supportive care. Lactate 2.[address] abd/pelvis with dilated fluid-filled small bowel loops with normal caliber distal small bowel. ?early or partial SBO. Advance to full liquids in AM. 2. Elevated trop in the setting of right sided chest pain. Trend trops (0.054-->0.094-->0.086). Demand ischemia. Echo normal. CCM. 3. LARA. On biPAP here. 4. Bipolar disorder. No chronic meds. Although low mood recently. Consider therapy as an outpatient. Dispo: if tolerating food tomorrow, dc home. Subjective Mary reports she feels better today, but still not back to baseline. Her diarrhea has slowed down, but she continues to have abdominal pain and minimal appetite. She has not been able to tolerate very much p.o. today. She continues to have diffuse right abdominal pain worsened with palpation and sitting up. No fevers, no chills. She endorses a history of depression which was worse in her 30s but which has fluctuated over the years. She has had manic symptoms in the past. She has discussed mood stabilizer treatment with her PCP but stopped lithium due to liver changes and had modest benefit from Depakote. She has not been on any medications recently and feels like she has been doing okay, but has "been slowing down "a little bit lately. Review of Systems Review of Systems: Constitutional: Denies fever, chills, malaise Eyes: Denies double vision, vision change, eye pain ENT: Denies ear pain, sore throat, sinus pain Cardiovascular: Endorses R rib pain. Denies chest pressure, palpitations, extremity swelling Respiratory: Denies shortness of breath, cough, sputum production, difficulty breathing Gastrointestinal: Endorses abdominal pain, nausea, vomiting, diarrhea Integumentary:Denies rash, lesions, bruising Neurological: Denies headache, numbness, tingling Endorses depression, history of bipolar Physical Exam Physical Exam: General: A&Ox3. NAD. Cooperative. HEENT: Atraumatic, normocephalic. Pulm: CTAB A&P. -wheezes, -rales, -rhonchi. Symmetrical chest rise. No increase work of breathing. No respiratory distress. Cardiac: RRR, -mrg. Radial pulses intact and symmetrical. Mild tenderness to R rib palpation. Abdominal: Nontender, nondistended, soft. BS present. Results & Data Vital Signs (Past 12 Hours) Vital Signs Temp Pulse Pulse Resp BP BP Pulse Ox 02/24/19 15:16 36.9 C 76 20 113/53 L 95 02/24/19 10:54 37.2 C 74 18 109/46 L 93 02/24/19 07:37 36.9 C 66 18 125/51 L 96 02/24/19 05:15 72 02/24/19 05:14 36.8 C 69 16 171/64 H 98 Resident Activity Tracking Resident Involvement: Resident Care Provided Care Provided: Adult Hospital Medicine (1) Abdominal pain Abdominal location: right upper quadrant Qualified Code(s): R10.11 - Right upper quadrant pain
[2019-02-25] MEDS: HEPARIN SOD 5,000 UNIT/0.5 ML VIAL SQ SCH (05:51)
--- NOTE | 2019-02-25 08:04 | Family Medicine Progress Note ---
Date of Service February 25, 2019 Assessment & Plan (1) Abdominal pain: Mary is a 73-year-old female with a past medical history of bipolar, obesity, sleep apnea who presented with 1 day of abdominal pain, nausea, vomiting, and diarrhea after eating a chicken salad [employer] in [place]. She was febrile with these episodes. She was found to have elevated troponins on admit, she was admitted for further work-up and observation. Gastroenteritis She presented with nausea, vomiting, and multiple episodes of liquidy diarrhea onset following a chicken salad meal. Her diarrhea is slowly improving on its own. She has not had recent antibiotic treatment, and her diarrhea has not been bloody or with mucus. It has had some formed but mostly liquid quality. Lactate was elevated to 2.4 on admit, downtrending CT abdomen showed early/partial small bowel obstruction possibly consistent with enteritis. She has had abdominal surgeries before, including a hysterectomy and cholecystectomy, so is at risk for adhesion obstruction. We will continue to follow clinically at this time. Advance diet slowly. Clears tonight, full liquids tomorrow morning, and continue to advance as tolerated. IV fluid maintenance with D5 LR 125 cc/h while p.o. intake is poor Elevated troponin, likely demand mismatch On admission she had some right-sided chest pain without EKG changes. Troponins were mildly elevated 2.054, peaked at 0.094, and have since down trended. TTE was obtained, shows mild LVH with normal LV function and ejection fraction of 65-70%. No wall motion abnormality. Low suspicion for cardiac etiology, suspect mismatch in setting of acute illness. Will not trend troponins further, no repeat EKG scheduled at this time. Additional follow-up if clinically indicated. Bipolar disorder Has been treated with multiple medications including lithium and Depakote in the past. No recent treatment. Has had manic episodes in the past. Stop lithium due to liver concerns. She feels a little bit "slowed down" lately, will think about whether she would like to consider pharmacotherapy or reestablishing with a therapist. May reach out to us for pharmacotherapy during admission, or defer to her PCP. History of obstructive sleep apnea Continue BiPAP nightly DVT prophylaxis: Heparin 5000 every 8 hours Full code Disposition: Observe overnight, advance diet, plan for discharge to home if doing clinically well (2) Vomiting and diarrhea: (3) Elevated troponin: Results & Data Vital Signs (Past 12 Hours) Vital Signs Temp Pulse Pulse Resp BP Pulse Ox 02/25/19 07:13 37.0 C 80 17 118/48 L 92 02/25/19 03:25 36.8 C 63 17 139/61 95 02/24/19 23:49 77 02/24/19 23:41 36.9 C 83 17 124/60 96 02/24/19 22:27 70 16 95 (1) Abdominal pain Abdominal location: right upper quadrant Qualified Code(s): R10.11 - Right upper quadrant pain
--- NOTE | 2019-02-25 11:13 | Discharge Summary ---
Date of Service February 25, 2019 Admission HPI Per Admitting Provider 73 y/o F Hx bipolar disorder, obese, GERD, LARA. Presents with abdominal pain, nausea, vomiting, diarrhea x 1 day after eating a chicken salad at an [employer] in [place]. Reports fevers over the past day. She also states that for the past 3 days she has had sharp pain in her RUQ and and R chest. She does not have a gallbladder. Initial labs are notable for an elevated troponin and a mild lactic elevation. A CT of the abdomen was consistent with enteritis. She denies SOB or L sided CP. PMH: 1) Bipolar disorder - this is not treated as she states that she "never had any luck with antidepressants" 2) Obese - BMI 38 3) LARA - BiPAP 4) GERD Surgical: 1) L TKR 2) Cholecystectomy 3) Hernia repair 4) Hysterectomy Social: No history of smoking or drinking Family: Father due to complications of DM and lower extremity infections Mother due to an [place] Admission Exam Per Admitting Provider General: AAO x 3, no distress ENT: No erythema or exudates, no thrush Eyes: LIZ, EOMI Head and neck: Normocephalic, atraumatic, No JVD, neck is supple. Chest/heart: Nontender, S1,2, RRR, no murmurs, no gallops Lungs: CTAB, no wheezing or crackles Abdomen: Nontender, nondistended, BS+ Neuro: AAO x 3, speech is clear, no unilateral weakness or loss of sensation, coordination intact Musculoskeletal: No joint inflammation, muscle tenderness, FROM Skin: No acute rashes or ulcers Extremities: No clubbing, cyanosis, edema Principal Diagnosis Gastroenteritis Discharge Exam General: A&Ox3. NAD. Cooperative. HEENT: Atraumatic, normocephalic. Pulm: CTAB A&P. -wheezes, -rales, -rhonchi. Symmetrical chest rise. No increase work of breathing. No respiratory distress. Cardiac: RRR, -mrg. Radial pulses intact and symmetrical. Mild tenderness to R rib palpation. Abdominal: Nontender, nondistended, soft. BS present. Discharge Data Allergies Allergy/AdvReac Type Severity Reaction Status Date / Time fluoxetine Allergy Intermediate RASH Verified 02/24/19 03:24 doxycycline AdvReac Severe UPSET Verified 02/24/19 03:24 STOMACH Consultations 05/24/19 03:24 ED Decision to Admit Stat Ordered Studies 02/24/19 01:27 CT abd pelvis IV con only Urgent Hospital Course (1) Abdominal pain: Mary is a 73-year-old female with a past medical history of bipolar, obesity, sleep apnea who presented with 1 day of abdominal pain, nausea, vom iting, and diarrhea after eating a chicken salad [employer] in [place]. She was febrile with these episodes. She was found to have elevated troponins on admit, she was admitted for further work-up and observation. Gastroenteritis PT presented with nausea, vomiting, and multiple episodes of liquidy diarrhea onset following a chicken salad meal. She has not had recent antibiotic treatment, and her diarrhea has not been bloody or with mucus. It has had some formed but mostly liquid quality. Lactate was elevated to 2.4 on admit, downtrending, CT abdomen showed early/partial small bowel obstruction possibly consistent with enteritis. She has had abdominal surgeries before, including a hysterectomy and cholecystectomy, so is at risk for adhesion obstruction. She was admitted and given mIVF while npo, Diet was advanced slowly and she tolerated it well. Her diarrhea has slowly improved on its own. Elevated troponin, likely demand mismatch On admission she had some right-sided chest pain without EKG changes. Troponins were mildly elevated 2.054, peaked at 0.094, and have since down trended. A TTE was obtained, shows mild LVH with normal LV function and ejection fraction of 65-70%. No wall motion abnormality. Low suspicion for cardiac etiology, suspect mismatch in setting of acute illness. Will not trend troponins further, no repeat EKG scheduled at this time. Additional follow-up if clinically indicated. Bipolar disorder Has been treated with multiple medications including lithium and Depakote in the past. No recent treatment. Has had manic episodes in the past. Stop lithium due to liver concerns. She feels a little bit "slowed down" lately, will think about whether she would like to consider pharmacotherapy or reestablishing with a therapist. Deferred further work-up to her PCP, advised her to seek counseling on whether or not to obtain medical therapy for treatment. History of obstructive sleep apnea Continue BiPAP nightly DVT prophylaxis was provided with heparin 5000 every 8 hours DC'd on discharge Full code Disposition: Home Total Time Total Time Spent Total Time Spent (In Minutes): >30 min Discharge Plan Discharge Items Patient Disposition: Home - Self-Care Reason For Visit: ABD PAIN,ELEVATED TROP Discharge Diagnosis: Gastroenteritis Discharge Goals: Decrease discomfort Activity: As commented below Activity Comment: Resume activity as tolerated Non-emergency contact: Primary Care Provider Call non-emergency contact if: you have any medication questions, your pain is unusual for you and your temperature is above 101.5 Follow-up/Referrals: Fly Encinas MD [Primary Care Provider] - Diet: Carb Consistent or DM2 and Heart Healthy Addtl Provider Instructions: Care instructions: You were admitted to [facility] for treatment of Gastroenteritis. A discharge summary will be sent to your primary care physician to ensure continuity of care.Please bring this discharge summary with you to your next office appointment so that your provider can review it at that time. Follow-up appointments: - Keep all your follow-up appointments as already scheduled. If you cannot make an appointment, notify your provider. - Please call to request a follow-up appointment with your primary care physician within one week of discharge. Please let us know if you are unable to obtain an appointment Medications: - Your medication list has been reviewed and reconciled upon discharge to ensure accuracy and continuity of care. - You are provided with a list of all your current medications at this time. Please review this list closely and make note of any changes. - Please take all of your medications exactly as prescribed. - Tell your primary care provider if you cannot afford your medications. - Call your primary care provider if you are having any side effects or any other problems. - Call your primary care provider before taking any over the counter medications or supplements, including herbals and vitamins, because some of these may interact with your current medications and/or make your symptoms worse. Symptoms: Please call your primary care provider for symptoms including, but not limited to: fevers (temperatures greater than 100.4), chills, intractable nausea or vomiting, diarrhea, rash, shortness of breath, bleeding, pain, or if you experience any worsening of the symptoms that brought you to the hospital. For EMERGENCY and VERY SERIOUS health-related issues, such as chest pain, shortness of breath, or sudden onset of the symptoms that brought you to the hospital, you may need to call 911 or go directly to the Emergency Room It has been our privilege to take care of you during your hospital stay. And Above All Else Fell Better! Best Wishes, Manav Cervantes MD PGY1 Resident, Family & Community Medicine [facility] Residency at [facility] - [address], [address] MC: [place] [address] Prescriptions: No Action No Known Home Medications RF: 0 Stand-Alone Forms: My [facility] Discharge Orders: Discharge Order (Routine); Ordered 02/25/19 Ordered By: Manav Cervantes Admission Data Admit Date/Time: 02/24/19 04:01 Attending Provider: Paco Anderson Admit Provider: Jaime Juarez Primary Care Provider: Fly Encinas Other Providers: Jaime Juarez Service: Telemetry
== END 2019-02-25 11:55 | disposition home or self-care (01) | DRG 392 ==
LOC: ED 01:00 → SUATTDRO 04:01 → 2E 04:01